=== PATIENT | male | born 1990 | race Caucasian/White ===

== ENCOUNTER 2017-08-05 17:15 | Emergency (ER) | payer SELFPAY ==
[~2017-08-05] VITALS: Ht 172.7 cm; Wt 72.6 kg
--- NOTE | 2017-08-05 17:54 | NUR ---
PT WAS EVALUATED BY DR ALLEN. PT WAS D/C TO HOME. D/C INSTRUCTIONS GIVEN TO THE PY. GAIT IS STABLE. NO S/S OF ACUTE DISTRESS.
[2017-08-05 17:55] VITALS: BP 129/84
== END 2017-08-05 17:56 | disposition home or self-care (01) ==
LOC: ER 17:18
DX: S89.91XA Unspecified injury of right lower leg, initial encounter (principal); V00.131A Fall from skateboard, initial encounter; Y93.89 Activity, other specified; Y92.89 Other specified places as the place of occurrence of the external cause; Y99.8 Other external cause status
CPT/HCPCS: 29505; 99283; A4663